=== PATIENT | female | born 1990 | race Caucasian/White ===

== ENCOUNTER 2018-09-29 04:18 | Inpatient (IN) | payer OTHER ==
[~2018-09-29] VITALS: Ht 157.5 cm; Wt 71.7 kg
[2018-10-02] MEDS ORDERED: KETO10TA2 PO (08:21)
[2018-10-02] MEDS ORDERED: PROFERRIN-FORT1 EACH PO (08:22)
== END 2018-10-02 11:23 | disposition home or self-care (01) | DRG 812 ==
LOC: ER 04:18 → OB/GYN 13:12 → SEC-K 13:12 → OB/GYN 13:59
PROVIDERS: ADMIT Obstetrics & Gynecology
PROC: 30233N1 Transfusion of Nonautologous Red Blood Cells into Peripheral Vein, Percutaneous Approach (ICD-10-PCS; principal; 2018-09-29)
PROC: BU4CZZZ Ultrasonography of Uterus and Ovaries (ICD-10-PCS; 2018-09-29)
DX: D50.0 Iron deficiency anemia secondary to blood loss (chronic) (principal); D25.1 Intramural leiomyoma of uterus; N92.0 Excessive and frequent menstruation with regular cycle

== ENCOUNTER 2018-10-09 17:56 | Emergency (ER) | payer OTHER ==
[~2018-10-09] VITALS: Ht 157.5 cm; Wt 71.7 kg
[~2018-10-09 17:56] MED LIST: KETO10TA2 PO; PROFERRIN-FORT1 EACH PO
[2018-10-09] MEDS ORDERED: BACTRIM DS TAB1 EACH PO (23:11)
== END 2018-10-09 23:08 | disposition home or self-care (01) ==
LOC: ER 17:56
DX: B34.9 Viral infection, unspecified (principal); N39.0 Urinary tract infection, site not specified